=== PATIENT | male | born 1975 | race Caucasian/White ===

== ENCOUNTER 2016-09-13 16:14 | Emergency (ER) | payer OTHER ==
--- NOTE | 2016-09-13 16:38 | ED PSYCHIATRIC COMPLAINT ---
See Addendum History of Present Illness General Chief Complaint: ETOH/Drug Related Complaint Stated Complaint: BIBA ETOH Source: EMS Exam Limitations: intoxication Vital Signs & Intake/Output Vital Signs & Intake/Output Vital Signs Date Time Temp Pulse Resp B/P B/P Pulse O2 O2 Flow FiO2 Mean Ox Delivery Rate 09/14 0009 98.6 91 16 125/56 96 Room Air 09/13 1642 98.3 88 26 148/86 1 (SHAR MARTÍNEZ) Triage Nurses Notes Reviewed? yes Onset: Abrupt Duration: constant Timing: unknown Severity: severe Severity Numbers: 10 HPI: Patient is a 41-year-old male with unknown past medical history in which EMS states that they received a phone call in which a male was noted to be sleeping on the ground in which it is noted that he lives and [place] and was stated showed considerable concern of patient's significant intoxication of most likely alcohol however history is limited due to patient's current clinical status. When trying to wait patient he was mumbling and no respiratory distress and resting comfortably bedside. Safety monitor was ordered for patient's fall risk (SHAR MARTÍNEZ) Past History Travel History Traveled to [place] past 21 day No Medical History Any Pertinent Medical History? none Surgical History Surgical History: unobtainable Family History Hx Contributory? No (SHAR MARTÍNEZ) Review of Systems Review of Systems Constitutional: Reports: no symptoms. EENTM: Reports: no symptoms. Respiratory: Reports: no symptoms. Cardiovascular: Reports: no symptoms. GI: Reports: no symptoms. Genitourinary: Reports: no symptoms. Musculoskeletal: Reports: no symptoms. Skin: Reports: no symptoms. Neurological/Psychological: Reports: no symptoms. Hematologic/Endocrine: Reports: no symptoms. Immunologic/Allergic: Reports: no symptoms. All Other Systems: Reviewed and Negative (SHAR MARTÍNEZ) Physical Exam Physical Exam General Appearance: intoxicated Head: atraumatic Eyes: Bilateral: normal appearance. Ears, Nose, Throat: hearing grossly normal Neck: normal inspection Respiratory: normal breath sounds, no respiratory distress Cardiovascular: regular rate/rhythm Gastrointestinal: normal bowel sounds, non-tender Extremities: normal range of motion Neurological/Psychiatric: calm, INTOXICATED Appearance/Memory/Insight: disheveled Behavoir/Eye Contact/Speech: refused to answer Thoughts/Hallucinations: no apparent hallucination Skin: intact SAD PERSONS Done? unobtained due to conditi (SHAR MARTÍNEZ) Progress Differential Diagnosis: drug intoxication, drug overdose, drug withdrawal, electrolyte abnormality, encephalitis, hypoglycemia, hypothyroidism, IC hem/mass /tumor, meningitis Plan of Care: Orders Procedure Date/time Status Patient Safety Monitor 09/14 1643 Active URINE DRUG SCREEN FOR ER ONLY 09/13 164 Complete ETHANOL 09/13 1642 Complete COMPREHENSIVE METABOLIC PANEL 09/13 1642 Complete CBC WITHOUT DIFFERENTIAL 09/13 1642 Complete Laboratory Tests 09/13/16 2138: Urine Opiates Screen < 100.00, Methadone Screen < 40, Barbiturate Screen < 60, Ur Phencyclidine Scrn < 6.00, Amphetamines Screen < 100, U Benzodiazepines Scrn < 85, Urine Cocaine Screen < 50, Urine Cannabis Screen 77.50 H 09/13/16 1703: Anion Gap 13, Estimated GFR > 60, BUN/Creatinine Ratio 15.0, Glucose 98, Calcium 8.9, Total Bilirubin 0.5, AST 36, ALT 37, Alkaline Phosphatase 74, Total Protein 6.8, Albumin 4.4, Globulin 2.4, Albumin/Globulin Ratio 1.8, CBC w Diff NO MAN DIFF REQ, RBC 4.43 L, MCV 97.5 H, MCH 32.9 H, RDW 14.3, MPV 6.7 L, Gran % 71.7, Lymphocytes % 19.0 L, Monocytes % 6.1, Eosinophils % 2.7, Basophils % 0.5 , Absolute Granulocytes 6.8 H, Absolute Lymphocytes 1.8, Absolute Monocytes 0.6 , Absolute Eosinophils 0.3, Absolute Basophils 0, PUBS MCHC 33.8, Serum Alcohol 208.0 Patient on initial examination was noted to be significantly intoxicated however resting comfortably Patient had negative urine drug screen. Patient has been sleeping for over 8 hours in the emergency room resting comfortably bedside. Discussed handle for Dr. Cuevas. (SHAR MARTÍNEZ) Hand-Off Endorsed To: YVONNE CUEVAS MD Endorsed Time: 33 (SHAR MARTÍNEZ) Departure Departure Disposition: STILL A PATIENT Condition: Stable Clinical Impression Primary Impression: Alcohol intoxication Referrals: UNKNOWN (PCP/Family) Additional Instructions: If symptoms worsen return to emergency room. Please discontinue the use of alcohol Departure Forms: Customer Survey General Discharge Information (SHAR MARTÍNEZ) PA/GASKET SUPERVISOR Co-Sign Statement Statement: ED Attending supervision documentation- [] I saw and evaluated the patient. I have also reviewed all the pertinent lab results and diagnostic results. I agree with the findings and the plan of care as documented in the PA's/GASKET SUPERVISOR's documentation. [X] I have reviewed the ED Record and agree with the PA's/GASKET SUPERVISOR's documentation. [] Additions or exceptions (if any) to the PAs/GASKET SUPERVISOR's note and plan are summarized below: [] (TRENA RICHARDSON,YVONNE Hinton)
[2016-09-13 17:20] LABS: ABSOLUTE BASOPHIL COUNT 0 /CUMM (0.0-0.2); ABSOLUTE EOSINOPHIL COUNT 0.3 /CUMM (0.0-0.7); ABSOLUTE GRANULOCYTE CT 6.8 /CUMM (1.4-6.5); ABSOLUTE LYMPH COUNT 1.8 /CUMM (1.2-3.4); ABSOLUTE MONOCYTE COUNT 0.6 /CUMM (0.10-0.60); BASOPHIL % 0.5 % (0.0-2.0); EOSINOPHIL % 2.7 % (0-5); GRANULOCYTE % 71.7 % (42.2-75.2); HEMATOCRIT 43.2 % (42-52); MEAN CORPUSCULAR HGB 32.9 PG (27.0-31.0); MEAN CORPUSCULAR HGB CONC 33.8 G/DL (33.0-37.0); MEAN CORPUSCULAR VOLUME 97.5 FL (80.0-94.0); MEAN PLATELET VOLUME 6.7 FL (7.4-10.4); PLATELET COUNT 211 /CUMM (130-400); RBC DISTRIBUTION WIDTH 14.3 % (11.5-14.5); RED BLOOD CELL CT 4.43 /CUMM (4.70-6.10); WHITE BLOOD CELL COUNT 9.5 /CUMM (4.8-10.8)
[2016-09-14 04:52] VITALS: BP 142/88
== END 2016-09-14 05:07 ==
LOC: ERH 16:14
PROVIDERS: Physician Assistant
DX: F10.129 Alcohol abuse with intoxication, unspecified (principal)
CPT/HCPCS: 80307; G0480

== ENCOUNTER 2016-10-02 22:29 | Emergency (ER) | payer OTHER ==
[~2016-10-02] VITALS: Ht 175.3 cm; Wt 63.5 kg
--- NOTE | 2016-10-02 22:38 | ED GI/GU/ABDOMINAL COMPLAINT ---
History of Present Illness General Chief Complaint: General Adult Stated Complaint: BIBA WITH UNRESPONSIVE Source: patient Exam Limitations: no limitations Vital Signs & Intake/Output Vital Signs & Intake/Output Vital Signs Date Time Temp Pulse Resp B/P B/P Pulse O2 O2 Flow FiO2 Mean Ox Delivery Rate 10/03 2231 96.6 98 20 116/67 98 Room Air Allergies Coded Allergies: No Known Allergies (09/14/16) Triage Note: BIBA, PT FOUND LAYING ON SOMEOENS LAWN, ? INTOXICATION. PT'S CLOTHES DISHEVELED, RESPONSE OCCASSIONLY. REFUSED VS BY EMS. PT CHANGED INTO HOSPITAL GOWN, CLOTHING PLACED IN 1 BAG. PT INCONT OF URINE. Triage Nurses Notes Reviewed? yes Onset: Gradual Duration: hour(s):, continues in ED Timing: single episode today Past History Travel History Traveled to [place] past 21 day No Surgical History Surgical History: unobtainable Psychosocial History What is your primary language Burkinan Review of Systems Review of Systems Constitutional: Reports: no symptoms. EENTM: Reports: no symptoms. Respiratory: Reports: no symptoms. Cardiovascular: Reports: no symptoms. GI: Reports: no symptoms. Genitourinary: Reports: no symptoms. Musculoskeletal: Reports: no symptoms. Skin: Reports: no symptoms. Neurological/Psychological: Reports: no symptoms. Hematologic/Endocrine: Reports: no symptoms. Immunologic/Allergic: Reports: no symptoms. All Other Systems: Reviewed and Negative Progress Plan of Care: Orders Procedure Date/time Status URINE DRUG SCREEN FOR ER ONLY 10/02 2237 Active ETHANOL 10/02 2237 Active COMPREHENSIVE METABOLIC PANEL 10/02 2237 Active CBC WITHOUT DIFFERENTIAL 10/[address] HEAD WO IV CONTRAST 10/[address] CERV SPINE WO IV CONTRAST 10/02 2237 Active Departure Departure Condition: Stable Referrals: UNKNOWN (PCP/Family) Departure Forms: Customer Survey General Discharge Information
--- NOTE | 2016-10-02 22:43 | ED AMS/SEIZURE/WEAK/DIZZY ---
History of Present Illness General Chief Complaint: General Adult Stated Complaint: BIBA WITH UNRESPONSIVE Source: patient Exam Limitations: intoxication Vital Signs & Intake/Output Vital Signs & Intake/Output Vital Signs Date Time Temp Pulse Resp B/P B/P Pulse O2 O2 Flow FiO2 Mean Ox Delivery Rate 10/03 0102 78 20 124/78 96 Room Air 10/029 98 Room Air 10/03 2231 96.6 98 20 116/67 98 Room Air ED Intake and Output 10/03 0000 10/02 1200 Intake Total Output Total Balance Patient 140 lb Weight Weight Estimated Measurement Method Allergies Coded Allergies: No Known Allergies (09/14/16) Triage Note: BIBA, PT FOUND LAYING ON SOMEOENS LAWN, ? INTOXICATION. PT'S CLOTHES DISHEVELED, RESPONSE OCCASSIONLY. REFUSED VS BY EMS. PT CHANGED INTO HOSPITAL GOWN, CLOTHING PLACED IN 1 BAG. PT INCONT OF URINE. Triage Nurses Notes Reviewed? yes Onset: Gradual Duration: hour(s): Timing: single episode today Injury Environment: street Severity: moderate Modifying Factors: Improves With: rest. Associated Symptoms: DECREASED RESPONSIVENESS HPI: 41 yo gentleman brought in by police/EMS. He was found lethargic, minimally responsive, on the front lawn of someone's home. Per the medics, smelling of alcohol. He presents minimally responsive. Past History Travel History Traveled to [place] past 21 day No Medical History Any Pertinent Medical History? see below for history (pt minimally responsive. ) Neurological: NONE Surgical History Surgical History: unobtainable Psychosocial History What is your primary language Sinhala Tobacco Use: UN ETOH Use: 5 Illicit Drug Use: U Family History Hx Contributory? No Review of Systems Review of Systems Constitutional: Reports: no symptoms. EENTM: Reports: no symptoms. Respiratory: Reports: no symptoms. Cardiovascular: Reports: no symptoms. GI: Reports: no symptoms. Genitourinary: Reports: no symptoms. Musculoskeletal: Reports: no symptoms. Skin: Reports: no symptoms. Neurological/Psychological: Reports: no symptoms. Hematologic/Endocrine: Reports: no symptoms. Immunologic/Allergic: Reports: no symptoms. All Other Systems: Reviewed and Negative Physical Exam Physical Exam General Appearance: well developed/nourished, no apparent distress, lethargic Head: atraumatic, normal appearance Eyes: Bilateral: normal appearance, PERRL, EOMI. Ears, Nose, Throat: normal pharynx, normal ENT inspection Neck: normal inspection, supple, full range of motion Respiratory: normal breath sounds, chest non-tender, no respiratory distress, quiet respiration Cardiovascular: regular rate/rhythm Gastrointestinal: normal bowel sounds, soft, non-tender, no organomegaly Back: normal inspection, normal range of motion Extremities: normal range of motion Neurologic/Psych: no motor/sensory deficits, lethargic, minimally responsive to vigorous stimuli Skin: intact, normal color, warm/dry Core Measures ACS in differential dx? No CVA/TIA Diagnosis: No Severe Sepsis Present: No Septic Shock Present: No Progress Differential Diagnosis: alcohol intoxication, CVA/stroke, dehydration, drug intoxication, electrolyte imbalance, hypoglycemia Plan of Care: Orders Procedure Date/time Status URINE DRUG SCREEN FOR ER ONLY 10/02 2237 Active ETHANOL 10/02 2237 Complete COMPREHENSIVE METABOLIC PANEL 10/02 2237 Complete CBC WITHOUT DIFFERENTIAL 10/[address] HEAD WO IV CONTRAST 10/[address] CERV SPINE WO IV CONTRAST 10/02 2237 Active Laboratory Tests 10/03/16 0516: Methadone Screen Pending, Barbiturate Screen Pending, Ur Phencyclidine Scrn Pending, Amphetamines Screen Pending, U Benzodiazepines Scrn Pending, Urine Cocaine Screen Pending, Urine Cannabis Screen Pending 10/02/16 2250: Anion Gap 11, Estimated GFR > 60, BUN/Creatinine Ratio 10.0, Glucose 99, Calcium 8.6, Total Bilirubin 0.3, AST 27, ALT 31, Alkaline Phosphatase 72, Total Protein 7.1, Albumin 4.4, Globulin 2.7, Albumin/Globulin Ratio 1.6, CBC w Diff NO MAN DIFF REQ, RBC 4.43 L, MCV 97.0 H, MCH 32.4 H, RDW 14.1, MPV 6.5 L, Gran % 60.5, Lymphocytes % 29.7, Monocytes % 5.2, Eosinophils % 4.1, Basophils % 0.5, Absolute Granulocytes 4.7, Absolute Lymphocytes 2.3, Absolute Monocytes 0.4, Absolute Eosinophils 0.3, Absolute Basophils 0, PUBS MCHC 33.4, Serum Alcohol 187.0 Diagnostic Imaging: Viewed by Me: CT Scan. Discussed w/RAD: CT Scan. Initial ED EKG: none Departure Departure Disposition: HOME OR SELF CARE Condition: Stable Clinical Impression Primary Impression: Alcohol intoxication Referrals: UNKNOWN (PCP/Family) Departure Forms: Customer Survey General Discharge Information Comments 10/03/16, 5:26am.... pt easily awakened, doing well, no complaints. He tolerated juice without problem. He declines detox. He denies SI/HI. He is safe for discharge in the AM.
[2016-10-02 22:55] LABS: ABSOLUTE BASOPHIL COUNT 0 /CUMM (0.0-0.2); ABSOLUTE EOSINOPHIL COUNT 0.3 /CUMM (0.0-0.7); ABSOLUTE GRANULOCYTE CT 4.7 /CUMM (1.4-6.5); ABSOLUTE LYMPH COUNT 2.3 /CUMM (1.2-3.4); ABSOLUTE MONOCYTE COUNT 0.4 /CUMM (0.10-0.60); BASOPHIL % 0.5 % (0.0-2.0); EOSINOPHIL % 4.1 % (0-5); GRANULOCYTE % 60.5 % (42.2-75.2); MEAN CORPUSCULAR HGB 32.4 PG (27.0-31.0); MEAN CORPUSCULAR HGB CONC 33.4 G/DL (33.0-37.0); MEAN PLATELET VOLUME 6.5 FL (7.4-10.4); PLATELET COUNT 239 /CUMM (130-400); RBC DISTRIBUTION WIDTH 14.1 % (11.5-14.5); RED BLOOD CELL CT 4.43 /CUMM (4.70-6.10); WHITE BLOOD CELL COUNT 7.8 /CUMM (4.8-10.8)
[2016-10-03 05:28] VITALS: BP 149/91
== END 2016-10-03 05:34 ==
LOC: ERH 22:29
PROVIDERS: Pediatrics
DX: F10.129 Alcohol abuse with intoxication, unspecified (principal); R40.20 Unspecified coma
CPT/HCPCS: 80307; G0480